=== PATIENT | male | born 1980 | race African-American/Black ===

== ENCOUNTER 2016-11-02 11:32 | Emergency (ER) | payer SELFPAY ==
[~2016-11-02 11:32] MED LIST: CIPRO PO; VIBRAMYCIN100 M1 PO; VICODIN 5/1 TAB 5/50 PO
[2016-11-04 01:55] LABS: CHLAMYDIA TRACH Not Detected (Not Detected); N GONOR Detected (Not Detected)
== END 2016-11-02 11:39 | disposition home or self-care (01) ==
LOC: CFTX 11:32
PROVIDERS: Physician Assistant Medical
DX: N34.2 Other urethritis (principal); F17.210 Nicotine dependence, cigarettes, uncomplicated
CPT/HCPCS: 87491; 87591; 96372; 99283; J0696